=== PATIENT | female | born 1975 | race Caucasian/White ===

== ENCOUNTER 2025-04-03 08:20 | Inpatient (IN) | payer OTHER, MEDICAID ==
[~2025-04-03] VITALS: Ht 162.5 cm; Wt 73.9 kg
[2025-04-03 08:20] VITALS: BP 99/53
[2025-04-03] MEDS ORDERED: IOHEXOL 300 MG/ML 100 ML VIAL IV ONE (08:25)
[2025-04-03] MEDS ORDERED: SODIUM CHLORIDE 0.9% 1,000 ML IV ONE (08:25)
[2025-04-03 08:38] LABS: BASO # 0.1 10*3/uL (0.0-0.1); BASO % 0.5 % (0.0-1.0); EOS # 0.2 10*3/uL (0.0-0.4); EOS % 1.7 % (1.0-4.0); HEMATOCRIT 38.3 % (37.0-47.0); MEAN CELL VOLUME 89.7 fl (81.0-99.0); MEAN CORPUSCULAR HGB 29.7 pg (27.0-31.0); MEAN CORPUSCULAR HGB CONC 33.2 g/dl (33.0-37.0); MONO % 7.8 % (3.0-9.0); NEUT # 9.3 10*3/uL (2.3-7.9); NEUT % 73.5 % (47.0-73.0); PLATELET COUNT AUTOMATED 363 10*3/uL (130-400); RED BLOOD COUNT 4.27 10*6/uL (4.10-5.10); RED CELL DISTRI WIDTH 11.8 % (0-14.5); WHITE BLOOD COUNT 12.6 10*3/uL (4.8-10.8)
[2025-04-03] MEDS ORDERED: IOHEXOL 300 MG/ML 100 ML VIAL ONE (08:45)
[2025-04-03 08:57] LABS: ALKALINE PHOSPHATASE 92 U/L (46-116); BUN 18 mg/dl (9-23); CHLORIDE 103 mmol/L (98-107); LIPASE 30 U/L (12-53); POTASSIUM 3.5 mmol/L (3.4-5.1); SGPT/ALT 15 U/L (5-49); TOTAL PROTEIN 6.9 gm/dL (6.0-8.0)
[2025-04-03] MEDS ORDERED: ADVAIR 250/501 EA INH (09:09)
[2025-04-03] MEDS ORDERED: ESCITALOPRAM OX10 MG PO (09:09)
[2025-04-03] MEDS ORDERED: RISPERIDONE2 M2 PO (09:10)
[2025-04-03] MEDS ORDERED: 24 HOUR ALLERG9.9 ML INH (09:10)
[2025-04-03] MEDS ORDERED: ONE DAILY WOME1 EAC3 PO (09:10)
[2025-04-03] MEDS ORDERED: MONTELUKAST SOD10 MG PO (09:12)
[2025-04-03] MEDS ORDERED: VENT7GM INH (09:13)
[2025-04-03] MEDS ORDERED: XYZAL5 M1 PO (09:13)
[2025-04-03 11:22] VITALS: BP 103/68
[2025-04-03] MEDS ORDERED: SUCRALFATE 1 GM TAB PO SCH (11:30)
[2025-04-03] MEDS ORDERED: Ondansetron Hydrochloride 4 MG/2 ML VIAL IV PRN (11:30)
[2025-04-03] MEDS ORDERED: ACETAMINOPHEN 325 MG TAB PO PRN (11:30)
[2025-04-03] MEDS ORDERED: BUDESONIDE 0.5 MG AMP NEB SCH (12:29)
[2025-04-03] MEDS ORDERED: Albuterol Sulfate 2.5 MG/3 ML VIAL NEB SCH (12:29)
[2025-04-03] MEDS ORDERED: metroNIDAZOLE 500 MG TAB PO SCH (14:00)
[2025-04-03 16:00] VITALS: BP 98/59
[2025-04-03] MEDS ORDERED: Pantoprazole Sodium 40 MG TAB PO SCH (18:00)
[2025-04-03] MEDS ORDERED: risperiDONE 2 MG TAB PO SCH (18:00)
[2025-04-03 20:00] VITALS: BP 92/63
[2025-04-03] MEDS ORDERED: Ciprofloxacin Hydrochloride 500 MG TAB PO SCH (22:00)
[2025-04-04 06:13] LABS: BASO % 0.4 % (0.0-1.0); EOS # 0.3 10*3/uL (0.0-0.4); EOS % 3.7 % (1.0-4.0); HEMATOCRIT 34.1 % (37.0-47.0); MEAN CELL VOLUME 89.7 fl (81.0-99.0); MEAN CORPUSCULAR HGB 29.2 pg (27.0-31.0); MEAN CORPUSCULAR HGB CONC 32.6 g/dl (33.0-37.0); MEAN PLATELET VOLUME 9.6 fl (9.6-12.3); MONO # 0.7 10*3/uL (0.1-1.0); MONO % 8.6 % (3.0-9.0); NEUT # 4.2 10*3/uL (2.3-7.9); NEUT % 52.1 % (47.0-73.0); PLATELET COUNT AUTOMATED 344 10*3/uL (130-400); RED CELL DISTRI WIDTH 11.7 % (0-14.5)
[2025-04-04 07:21] LABS: ALKALINE PHOSPHATASE 77 U/L (46-116); BUN 13 mg/dl (9-23); CHLORIDE 105 mmol/L (98-107); CHOLESTEROL 158 mg/dL (<200); LDL CHOLESTEROL 105 mg/dL (9-159); POTASSIUM 3.3 mmol/L (3.4-5.1); SGPT/ALT 12 U/L (5-49); TOTAL PROTEIN 5.9 gm/dL (6.0-8.0); TRIGLYCERIDES 63 mg/dl (<150)
[2025-04-04 08:00] VITALS: BP 102/78
[2025-04-04] MEDS ORDERED: Montelukast Sodium 10 MG TAB PO SCH (10:00)
[2025-04-04 11:02] LABS: VITAMIN D, 25-HYDROXY 33.8 ng/mL (30-100)
[2025-04-04 11:22] LABS: FREE T4 1.25 ng/dl (0.89-1.76)
[2025-04-04 12:00] VITALS: BP 108/68
[2025-04-04] MEDS ORDERED: POTASSIUM CHLORIDE 20 MEQ TAB PO ONE (12:20)
[2025-04-04 14:25] LABS: BILIRUBIN Negative (Negative); BLOOD 2+ (Negative); CLARITY Turbid (Clear); COLOR Yellow (Yellow); GLUCOSE Negative (Negative); KETONE Negative (Negative); LEUKO ESTERASE 2+ (Negative); NITRITE Negative (Negative); PH 6.5 (4.5-8.0); UROBILINOGEN 0.2 E.U./dl (0.0-1.0)
[2025-04-04 14:38] LABS: BACTERIA 1+
[2025-04-04] MEDS ORDERED: hydrOXYzine pamoate 25 MG CAP PO PRN (14:55)
[2025-04-04 16:00] VITALS: BP 126/99
[2025-04-04 20:00] VITALS: BP 119/93
[2025-04-05] VITALS: BP 101/44
[2025-04-05 06:20] LABS: BASO # 0.1 10*3/uL (0.0-0.1); BASO % 0.5 % (0.0-1.0); EOS # 0.3 10*3/uL (0.0-0.4); EOS % 2.9 % (1.0-4.0); MEAN CELL VOLUME 90.9 fl (81.0-99.0); MEAN CORPUSCULAR HGB 30.4 pg (27.0-31.0); MEAN CORPUSCULAR HGB CONC 33.4 g/dl (33.0-37.0); MONO # 0.6 10*3/uL (0.1-1.0); MONO % 6.2 % (3.0-9.0); NEUT # 6.6 10*3/uL (2.3-7.9); NEUT % 64.8 % (47.0-73.0); PLATELET COUNT AUTOMATED 371 10*3/uL (130-400); RED BLOOD COUNT 3.85 10*6/uL (4.10-5.10); RED CELL DISTRI WIDTH 11.7 % (0-14.5); WHITE BLOOD COUNT 10.1 10*3/uL (4.8-10.8)
[2025-04-05] MEDS ORDERED: Carafate1 GM PO (07:49)
[2025-04-05] MEDS ORDERED: PANTOPRAZOLE SO40 MG PO (07:49)
[2025-04-05] MEDS ORDERED: METRONIDAZOLE500 M1 PO (07:49)
[2025-04-05] MEDS ORDERED: CIPROFLOXACIN500 M4 PO ×2 (07:49→07:50)
== END 2025-04-05 10:53 | DRG 394 ==
LOC: ED 08:20 → EDHOLD 10:01 → 4E 10:01
PROVIDERS: Internal Medicine; Registered Nurse; ADMIT Family Medicine; ATTEND Family Medicine
DX: K62.89 Other specified diseases of anus and rectum (principal); A09 Infectious gastroenteritis and colitis, unspecified; K92.1 Melena; E44.0 Moderate protein-calorie malnutrition; I95.9 Hypotension, unspecified; J45.909 Unspecified asthma, uncomplicated; F41.1 Generalized anxiety disorder; Z79.899 Other long term (current) drug therapy; Z79.01 Long term (current) use of anticoagulants; Z79.2 Long term (current) use of antibiotics; Z68.27 Body mass index [BMI] 27.0-27.9, adult